=== PATIENT | female | born 1995 | race African-American/Black ===

== ENCOUNTER 2020-05-30 16:18 | Inpatient (IN) | payer SELFPAY ==
[~2020-05-30] VITALS: Ht 165.1 cm; Wt 68.9 kg
[2020-05-30] MEDS ORDERED: CEFAZOLIN 1 GM in IV D5W 50 ML IV ONE (16:30)
[2020-05-30] MEDS ORDERED: IV NS 0.9% 1,000 ML BAG IV ONE (16:30)
[2020-05-30] MEDS ORDERED: HYDROMORPHONE INJ 2 MG/ML DISP.SYRIN IV ONE (16:30)
[2020-05-30] MEDS ORDERED: ONDANSETRON HCL/PF 4 MG/2 ML VIAL IVP ONE (16:30)
[2020-05-30] MEDS ORDERED: ONDANSETRON HCL/PF 4 MG/2 ML VIAL ONE (16:46)
[2020-05-30] MEDS ORDERED: HYDROMORPHONE 1 MG/1 ML DISP.SYRIN ONE ×2 (16:46→17:12)
[2020-05-30 17:00] LABS: BASOPHILS % (AUTO) 0.5 % (0.0-2.0); EOSINOPHILS % (AUTO) 0.1 % (0.0-6.0); HEMATOCRIT 40 % (33-45); HEMOGLOBIN 12.7 g/dL (11.5-14.8); LYMPHOCYTES # (AUTO) 3.2 /CMM (0.8-4.8); LYMPHOCYTES % (AUTO) 30.4 % (20.0-44.0); MEAN CORPUSCULAR HGB CONC 32 g/dl (31.0-36.0); MEAN CORPUSCULAR VOLUME 87 fL (82-100); MONOCYTES # (AUTO) 0.6 /CMM (0.1-1.30); MONOCYTES % (AUTO) 6.1 % (2.0-12.0); NEUTROPHILS # (AUTO) 6.5 /CMM (1.8-8.9); NEUTROPHILS % (AUTO) 62.9 % (43.0-81.0); PLATELET COUNT (AUTO) 282 /CMM (150-450); RED BLOOD CELL COUNT(AUTO) 4.58 MIL/uL (4.0-5.2); WHITE BLOOD COUNT (AUTO) 10.4 K/uL (4.3-11.0)
[2020-05-30] MEDS ORDERED: HYDROMORPHONE 1 MG/1 ML DISP.SYRIN IV ONE (17:00)
--- NOTE | 2020-05-30 17:00 | NUR ---
All meds as ordered. Conversant- aware of plan of care. Constantly on phone w/family
--- NOTE | 2020-05-30 17:01 | NUR ---
PAGED DR. BOLTON FOR ORTHO CONSULT.
[2020-05-30 17:08] LABS: CALCIUM, SERUM 8.2 mg/dL (8.5-10.1); CREATININE 0.8 mg/dL (0.6-1.3); POTASSIUM 3.9 mmol/L (3.5-5.1)
--- NOTE | 2020-05-30 17:33 | NUR ---
REPAGED DR BOLTON. AWAITING HIS CALL
--- NOTE | 2020-05-30 17:52 | NUR ---
Pt asleep. Respirations even/unlabored. Await ortho and admission
[2020-05-30] MEDS ORDERED: TDAP [DIPH/PERTUSSIS/TET] 0.5 ML VIAL IM ONE ×2 (18:00→18:01)
--- NOTE | 2020-05-30 18:04 | NUR ---
PAGED DR. BOLTON.
[2020-05-30] MEDS ORDERED: PROPOFOL 200 MG/20 ML VIAL IV ONE ×2 (18:30→22:00)
[2020-05-30] MEDS ORDERED: PROPOFOL 20 ML IV ONE (18:37)
--- NOTE | 2020-05-30 19:24 | NUR ---
Total of 150mg Diprivan as ordered by ER provider Dr Bales in incrementsl doses during moderate sedation/reduction LLE. See sedation documentation post procedure assessment defer to incoming shift. Report given to Herb
[2020-05-30] MEDS ORDERED: HYDROMORPHONE INJ 2 MG/ML DISP.SYRIN ONE (20:56)
[2020-05-30] MEDS ORDERED: ONDANSETRON HCL/PF 4 MG/2 ML VIAL IVP PRN (21:00)
[2020-05-30] MEDS ORDERED: Z GUARD REMEDY 2 OZ OINT TP PRN (21:00)
[2020-05-30] MEDS ORDERED: ACETAMINOPHEN 325 MG TABLET PO PRN (21:00)
[2020-05-30] MEDS ORDERED: MAGNESIUM HYDROXIDE 30 ML UDC PO PRN (21:00)
[2020-05-30] MEDS: HYDROMORPHONE INJ 2 MG/ML DISP.SYRIN IV PRN (21:13)
--- NOTE | 2020-05-30 21:22 | NUR ---
covid swab sent
--- NOTE | 2020-05-30 21:47 | NUR ---
COVID NEGATIVE PER LAB
--- NOTE | 2020-05-30 22:16 | NUR ---
[facility] CALLED; THEY ARE READING CT SCAN RIGHT NOW
--- NOTE | 2020-05-30 22:59 | NUR ---
ROOM 316-2 GIVEN
--- NOTE | 2020-05-30 23:05 | NUR ---
REPORT GIVEN TO PERLA TORRES FOR KARY PT WILL BE TRANSPORTED TO 3RD FLOOR
--- NOTE | 2020-05-30 23:35 | NUR ---
pt transferred to 3rd floor
[2020-05-31] VITALS (10 sets, daily range): BP systolic 92–137; BP diastolic 49–78
[2020-05-31] MEDS: IV NS 0.9% 1,000 ML IV PRN ×2 (00:01→15:26)
[2020-05-31] MEDS: HYDROCODONE/APAP 5/325MG TABLET PO PRN (00:07)
[2020-05-31] MEDS ORDERED: CEFAZOLIN 1 GM in IV D5W 50 ML IV SCH ×2 (01:00→08:00)
--- NOTE | 2020-05-31 01:03 | NUR ---
MS/TELE/RN PATIENT IS SLEEPING AT THIS TIME, APPEAR COMFORTABLE, BREATHING EVEN AND UNLABORED, CALL LIGHT IN REACH, WILL CONTINUE TO MONITOR.
[2020-05-31] MEDS: HYDROMORPHONE INJ 2 MG/ML DISP.SYRIN IV PRN ×4 (01:31→20:59)
[2020-05-31] MEDS ORDERED: CEFAZOLIN 1 GM ONE (02:15)
--- NOTE | 2020-05-31 03:15 | NUR ---
MS/TELE/RN RECEIVED PATIENT FROM E.R. VIA Leo AT AROUND 23:35. PATIENT WAS AWAKE, ALERT, ORIENTED, APPEAR COMFORTABLE, NO DISTRESS NOTED, LEFT LEG WITH JUAN BANDAGE WRAP, PATIENT IS S/P REDUCTION OF LEFT ANKLE FRACTURE IN E.R. MINIMAL BLEEDING NOTED AT POSTERIOR ASPECT OF LEG, WILL MONITOR. ADMISSION DONE, UNABLE TO OBTAIN COMPLETE ADMISSION HISTORY THE PATIENT WAS NOT COOPERATIVE, PATIENT DID NOT ANSWER SOME ADMISSION QUESTIONS, REFUSED SKIN ASSESSMENT. PLAN OF CARE DISCUSSED, NPO STATUS POST MIDNIGHT ORDERED, PATIENT VERBALIZED UNDERSTANDING AND AGREEMENT TO THE PLAN OF CARE,. FALL PRECAUTIONS PER PROTOCOL IMPLEMENTED, PLACED CALL LIGHT WITHIN REACH. PRESENTLY, PATIENT IS ALREADY NPO ORDERED. WILL MONITOR.
--- NOTE | 2020-05-31 07:00 | NUR ---
MS/TELE/RN PATIENT APPEAR SLEEPING AT THIS TIME, APPEAR COMFORTABLE, NO DISTRESS NOTED, ALL NEEDS ATTENDED AT THIS TIME, WILL CONTINUE TO MONITOR.
--- NOTE | 2020-05-31 07:30 | NUR ---
MS-RN OPENING NOTE PATIENT RECEIVED FROM [facility]. PATIENT IS A/O X4, VS WITHIN NORMAL RANGE. IV FLUIDS NS INFUSING AT 100CC/HR VIA RIGHT AC 18 G. PATIENT STATES PAIN LEVEL 4/10 BUT TOLERABLE. LEFT LEG ELEVATED ON BED, DRESSING DRY AND INTACT. PATIENT NPO UNTIL CONSULT WITH DR. BOLTON. CALL LIGHT WITHIN REACH, BED IN LOWEST POSITION, SIDE RAIL X2 IN UPRIGHT POSITION, BED ALARM ACTIVE. WILL CONTINUE TO MONITOR AND ENSURE SAFETY.
[2020-05-31 08:39] LABS: BASOPHILS % (AUTO) 0.1 % (0.0-2.0); EOSINOPHILS % (AUTO) 0.4 % (0.0-6.0); HEMATOCRIT 36 % (33-45); HEMOGLOBIN 11.4 g/dL (11.5-14.8); LYMPHOCYTES # (AUTO) 2.4 /CMM (0.8-4.8); LYMPHOCYTES % (AUTO) 18.6 % (20.0-44.0); MEAN CORPUSCULAR HGB CONC 32 g/dl (31.0-36.0); MEAN CORPUSCULAR VOLUME 86 fL (82-100); MONOCYTES # (AUTO) 1.3 /CMM (0.1-1.30); MONOCYTES % (AUTO) 9.9 % (2.0-12.0); NEUTROPHILS # (AUTO) 9.1 /CMM (1.8-8.9); PLATELET COUNT (AUTO) 214 /CMM (150-450); RED BLOOD CELL COUNT(AUTO) 4.14 MIL/uL (4.0-5.2); WHITE BLOOD COUNT (AUTO) 12.8 K/uL (4.3-11.0)
[2020-05-31 08:52] LABS: CALCIUM, SERUM 7.9 mg/dL (8.5-10.1); CREATININE 0.7 mg/dL (0.6-1.3); POTASSIUM 3.7 mmol/L (3.5-5.1)
[2020-05-31] MEDS ORDERED: MIDAZOLAM HCL 2 MG/2ML VIAL ONE (09:46)
[2020-05-31] MEDS ORDERED: HYDROMORPHONE INJ 2 MG/ML DISP.SYRIN ONE (09:46)
--- NOTE | 2020-05-31 09:52 | NUR ---
MS/culture room worker Patient taken to operating room for ORIF left ankle with Dr Lazcano.
[2020-05-31] MEDS ORDERED: ANESTHESIA TRAY IN PYXIS 1 EA TRAY MC ONE (09:59)
[2020-05-31] MEDS ORDERED: BACITRACIN 50000 UNITS/VIAL ONE (09:59)
[2020-05-31] MEDS ORDERED: BUPIVACAINE 0.5 % PF 150 MG/30 ML VIAL ONE (09:59)
[2020-05-31] MEDS ORDERED: BUPIVACAINE MPF 0.5% W/EPI INJ 30 ML VIAL ONE (09:59)
--- NOTE | 2020-05-31 10:00 | NUR ---
MS/RN Non admin IVAB non administered as patient in OR.
[2020-05-31] MEDS ORDERED: BUPIVACAINE 0.25% 75 MG/30 ML VIAL ONE (12:11)
--- NOTE | 2020-05-31 13:50 | NUR ---
MS/RN Post op Patient received back from operating room s/p left ankle ORIF. Vital signs recorded as per hospital protocol, left leg elevated on bed, dressing clean and dry upon return. Patient has sensation to toes on left foot, toes warm to touch. Pre operative orders resumed, to continue with ancef every eight hours, last dose being administered at 1025. NWB to left leg, physical therapy evaluation ordered. Lovenox 40mg to be tomorrow with dose being daily. Call light within reach, will continue to monitor and ensure safety.
[2020-05-31] MEDS: CEFAZOLIN 1 GM in IV D5W 50 ML IV SCH (17:14)
--- NOTE | 2020-05-31 18:37 | NUR ---
MS/RN End note Patient remains in stable condition, last pain medication administered at 1720 with goo effect. Patient now resting comfortably. Left leg remains elevated on pillow, able to move all toes. IVF and IVAB administered as ordered, time allowed for all questions and concerns to be addressed. Will endorse to night patrol inspector.
--- NOTE | 2020-05-31 19:35 | NUR ---
MS-RN OPENING NOTE RECEIVED PATIENT IN ROOM IS A/O X4, LEFT LEG ELEVATED ON BED, NO DISTRESS NOTED, NO S/S OF SOB. CALL LIGHT WITHIN REACH, BED IN LOWEST POSITION, SIDE RAIL X2 IN UPRIGHT POSITION, BED ALARM ACTIVE. WILL CONTINUE TO MONITOR AND ENSURE SAFETY.
--- NOTE | 2020-05-31 21:05 | NUR ---
MS RN NOTE: PT. C/O OF 8/10 PAIN IN ANKLE/FOOT. ADMINISTERED DILAUDID 2MG PRN ORDERED. WILL CONTINUE TO MONITOR FOR SAFETY AND BEHAVIOR.
--- NOTE | 2020-06-01 01:42 | NUR ---
MS RN NOTE: PT. ATTEMPTED TO RECORD WHILE INSERTING IV. TOLD HER THAT IT'S AGAINST THE LAW TO RECORD AND SHE TURNED OFF HER PHONE AND PROCEEDED TO INSERT IV IN RIGHT HAND 18 GAUGE. WILL CONTINUE TO MONITOR.
[2020-06-01] MEDS: HYDROMORPHONE INJ 2 MG/ML DISP.SYRIN IV PRN ×6 (01:43→22:48)
--- NOTE | 2020-06-01 01:47 | NUR ---
MS RN NOTE: PT. C/O OF 8/10 PAIN IN ANKLE/FOOT. ADMINISTERED DILAUDID 2MG PRN ORDERED. WILL CONTINUE TO MONITOR FOR SAFETY AND BEHAVIOR.
[2020-06-01] MEDS: CEFAZOLIN 1 GM in IV D5W 50 ML IV SCH ×3 (02:29→17:08)
--- NOTE | 2020-06-01 05:27 | NUR ---
MS RN NOTE: PT. C/O OF 8/10 PAIN IN ANKLE/FOOT. ADMINISTERED DILAUDID 2MG PRN ORDERED. WILL CONTINUE TO MONITOR FOR SAFETY AND BEHAVIOR.
--- NOTE | 2020-06-01 06:49 | NUR ---
MS/RN End note Patient remains in stable condition, last pain medication administered at 0522. Patient now resting comfortably. Left leg remains elevated on pillow, able to move all toes.
--- NOTE | 2020-06-01 07:39 | NUR ---
MS/RN OPENING NOTES RECEIVED PATIENT ON BED, AWAKE, ALERT AND ORIENTED X4. PATIENT COMPLAINED OF PAIN RATED 10/10 DILAUDID 2 MG IV WAS GIVEN. PATIENT IN NO APPARENT RESPIRATORY DISTRESS NOTED. WILL CONTINUE TO MONITOR.
[2020-06-01 08:00] VITALS: BP 118/63
--- NOTE | 2020-06-01 08:16 | NUR ---
RN NOTES RECEIVED REPORT FROM PERLA TELLEZ. WILL CONTINUE KARY.
[2020-06-01] MEDS: ENOXAPARIN SODIUM 40 MG/0.4 ML DISP.SYRIN SQ SCH (08:56)
[2020-06-01] MEDS: HYDROCODONE/APAP 5/325MG TABLET PO PRN ×3 (08:57→19:53)
[2020-06-01 13:00] LABS: BASOPHILS % (AUTO) 0.2 % (0.0-2.0); EOSINOPHILS % (AUTO) 0.5 % (0.0-6.0); HEMATOCRIT 35 % (33-45); HEMOGLOBIN 11.3 g/dL (11.5-14.8); LYMPHOCYTES # (AUTO) 1.7 /CMM (0.8-4.8); LYMPHOCYTES % (AUTO) 13.8 % (20.0-44.0); MEAN CORPUSCULAR HGB CONC 32 g/dl (31.0-36.0); MEAN CORPUSCULAR VOLUME 86 fL (82-100); MONOCYTES # (AUTO) 1.8 /CMM (0.1-1.30); MONOCYTES % (AUTO) 14.3 % (2.0-12.0); NEUTROPHILS # (AUTO) 8.8 /CMM (1.8-8.9); NEUTROPHILS % (AUTO) 71.2 % (43.0-81.0); PLATELET COUNT (AUTO) 186 /CMM (150-450); RED BLOOD CELL COUNT(AUTO) 4.08 MIL/uL (4.0-5.2); WHITE BLOOD COUNT (AUTO) 12.3 K/uL (4.3-11.0)
[2020-06-01 13:45] LABS: CALCIUM, SERUM 8.4 mg/dL (8.5-10.1); CREATININE 0.7 mg/dL (0.6-1.3); POTASSIUM 3.4 mmol/L (3.5-5.1)
[2020-06-01] MEDS ORDERED: POTASSIUM CHLORIDE 20 MEQ TAB.PRT.SR PO SCH (14:30)
[2020-06-01 16:00] VITALS: BP 116/65
[2020-06-01] MEDS ORDERED: ONDANSETRON HCL/PF 4 MG/2 ML VIAL IVP ONE (16:46)
[2020-06-01] MEDS ORDERED: CEFAZOLIN 1 GM VIAL IV ONE (16:46)
[2020-06-01] MEDS ORDERED: KETOROLAC TROMETHAMINE INJ 30 MG/ML VIAL IV ONE (16:46)
[2020-06-01] MEDS ORDERED: METOCLOPRAMIDE HCL 10 MG/2 ML VIAL IV ONE (16:46)
[2020-06-01] MEDS ORDERED: DEXAMETHASONE SOD PHOSPHATE 4 MG/ML VIAL IV ONE (16:46)
[2020-06-01] MEDS ORDERED: PROPOFOL 200 MG/20 ML VIAL IV ONE (16:46)
[2020-06-01] MEDS ORDERED: LIDOCAINE HCL/PF 2 % 5ML SDV 5 ML VIAL IV ONE (16:46)
--- NOTE | 2020-06-01 18:47 | NUR ---
RN NOTES PATIENT IN BED RESTING COMFORTABLY IN MODERATE HIGH BACK REST. A/O X4. ON RA, TOLERATING WELL. NO SIGNS OF DISTRESS NOTED AT THIS TIME. IV ACCESS ON RIGHT HAND #18. INTACT AND PATENT. SAFETY MEASURES IN PLACE, BED IN LOWEST LOCKED POSITION WITH SIDE RAILS UP X2. CALL LIGHT WITHIN EASY REACH. LEFT LEG KEPT ELEVATED WITH PILLOW. WILL ENDORSE TO LATHMAKER NURSE FOR KARY.
--- NOTE | 2020-06-01 19:23 | NUR ---
MS RN OPENING NOTES PATIENT AWAKE IN BED. A/OX4. STABLE ON RA. NO S/S OF ACUTE RESPIRATORY DISTRESS; BREATHING IS EVEN AND UNLABORED. NO C/O PAIN AT THIS TIME. LEFT ANKLE BOOT PRESENT; ELEVATED ON PILLOW; PATIENT ABLE TO MOVE TOES AND WARM TO TOUCH. IV PRESENT ON RIGHT HAND, SIZE 18, INTACT & PATENT WITH NS RUNNING AT 100 ML/HR. SAFETY MEASURES IN PLACE AND PATIENT'S NEEDS MET. BED LOCKED, SIDE RAILS X2, CALL LIGHT WITHIN REACH. WILL CONTINUE TO MONITOR.
[2020-06-01 20:00] VITALS: BP 112/68
[2020-06-01] MEDS: ZOLPIDEM TARTRATE 5 MG TABLET PO PRN (22:37)
[2020-06-01] MEDS: IV NS 0.9% 1,000 ML IV PRN (22:42)
--- NOTE | 2020-06-01 22:48 | NUR ---
MS RN NOTES PATIENT REQUESTED PRN AMBIEN; HOWEVER ONCE MEDICATION WAS BROUGHT TO ROOM PATIENT STARTED TO CRY AND REQUESTED FOR PAIN MEDICATION INSTEAD. AMBIEN RETURNED TO [facility] AND WITNESSED WITH CO-RN. ADMINISTERED PRN DILAUDID 2MG IV PUSH. VITAL SIGNS - BP: 133/81, HR: 104. CALL LIGHT WITHIN REACH. WILL CONTINUE TO MONITOR.
[2020-06-02] MEDS: ZOLPIDEM TARTRATE 5 MG TABLET PO PRN (01:17)
--- NOTE | 2020-06-02 01:17 | NUR ---
MS RN NOTES PATIENT REQUESTED SLEEPING AID. ADMINISTERED PRN AMBIEN 5M PO. SAFETY MEASURES IN PLACE AND PATIENT'S NEEDS MET. WILL CONTINUE TO MONITOR.
[2020-06-02] MEDS: CEFAZOLIN 1 GM in IV D5W 50 ML IV SCH ×2 (01:37→09:08)
[2020-06-02 05:14] VITALS: BP 135/76
[2020-06-02] MEDS: HYDROMORPHONE INJ 2 MG/ML DISP.SYRIN IV PRN (05:14)
--- NOTE | 2020-06-02 05:14 | NUR ---
MS RN NOTES PATIENT AGITATED AND THREW WATER PITCHER, CALL LIGHT, AND OTHER ITEMS ON THE FLOOR. ASKED PATIENT IF SHE WAS IN PAIN; PATIENT STATED YES HOWEVER WOULD NOT ELABORATE FURTHER. PATIENT REFUSED BP TO BE TAKEN BY SALES/MARKETING; EXPLAINED TO THAT WE NEED TO CHECK BP BEFORE GIVING PAIN MEDS; PATIENT RELUCTANTLY AGREED. ADMINISTERED PRN DILAUDID 2MG IV PUSH GIVEN. VITAL SIGNS - BP: 135/76, HR: 104. SAFETY MEASURES IN PLACE AND PATIENT'S NEEDS MET. WILL CONTINUE TO MONITOR.
[2020-06-02 06:47] LABS: BASOPHILS % (AUTO) 0.3 % (0.0-2.0); EOSINOPHILS % (AUTO) 0.4 % (0.0-6.0); HEMATOCRIT 34 % (33-45); HEMOGLOBIN 10.9 g/dL (11.5-14.8); LYMPHOCYTES # (AUTO) 1.5 /CMM (0.8-4.8); LYMPHOCYTES % (AUTO) 13.1 % (20.0-44.0); MEAN CORPUSCULAR HGB CONC 32 g/dl (31.0-36.0); MEAN CORPUSCULAR VOLUME 86 fL (82-100); MONOCYTES # (AUTO) 1.7 /CMM (0.1-1.30); MONOCYTES % (AUTO) 14.2 % (2.0-12.0); NEUTROPHILS # (AUTO) 8.4 /CMM (1.8-8.9); PLATELET COUNT (AUTO) 193 /CMM (150-450); RED BLOOD CELL COUNT(AUTO) 3.96 MIL/uL (4.0-5.2); WHITE BLOOD COUNT (AUTO) 11.7 K/uL (4.3-11.0)
--- NOTE | 2020-06-02 06:52 | NUR ---
MS RN CLOSING NOTES PATIENT SLEEPING, EASY TO AWAKEN. A/OX4. NO S/S OF SOB OR PAIN NOTED; BREATHING IS EVEN AND UNLABORED. LEFT ANKLE BOOT REMAINS IN PLACE AND ELEVATED ON PILLOW; SENSATION ON LEFT FOOT WNL. IV PRESENT ON RIGHT HAND, SIZE 18, INTACT & PATENT HEP LOCKED AT THIS TIME. SAFETY MEASURES IN PLACE AND PATIENT'S NEEDS MET. BED LOCKED, SIDE RAILS X2, CALL LIGHT WITHIN REACH, WILL ENDORSE TO DAY SHIFT RN PLAN OF CARE.
[2020-06-02 07:29] LABS: CALCIUM, SERUM 8.5 mg/dL (8.5-10.1); CREATININE 0.6 mg/dL (0.6-1.3); MAGNESIUM 1.9 mg/dL (1.8-2.4); PHOSPHORUS 2.8 mg/dL (2.5-4.9); POTASSIUM 3.5 mmol/L (3.5-5.1)
--- NOTE | 2020-06-02 07:30 | NUR ---
RN NOTES RECEIVED PATIENT IN BED RESTING COMFORTABLY IN MODERATE HIGH BACK REST. A/O X4. ON RA, TOLERATING WELL. NO SIGNS OF DISTRESS NOTED AT THIS TIME. IV ACCESS ON RIGHT HAND #18. INTACT AND PATENT. SAFETY MEASURES IN PLACE, BED IN LOWEST LOCKED POSITION WITH SIDE RAILS UP X2. CALL LIGHT WITHIN EASY REACH. LEFT LEG ELEVATED WITH PILLOW. WILL CONTINUE TO MONITOR.
[2020-06-02] MEDS: HYDROCODONE/APAP 5/325MG TABLET PO PRN ×2 (07:56→12:30)
[2020-06-02 08:00] VITALS: BP 127/69
[2020-06-02] MEDS: ENOXAPARIN SODIUM 40 MG/0.4 ML DISP.SYRIN SQ SCH (08:32)
--- NOTE | 2020-06-02 09:55 | NUR ---
RN NOTES PATIENT IV ACCESS WAS PULLED OUT, PATIENT REFUSED RE-INSERTION OF IV ACCESS, EXPLAINED RISKS AND BENEFITS FOR 3X AND STILL REFUSED, WILL CONTINUE TO MONITOR.
--- NOTE | 2020-06-02 10:50 | NUR ---
RN NOTES CALLED DR. BOLTON OFFICE, THEY SAID THEY WILL PAGED DR. BOLTON AND WILL CALL ME BACK. WILL F/U.
[2020-06-02] MEDS ORDERED: ASPI-992 PO (11:18)
[2020-06-02] MEDS ORDERED: CEPH-570 PO (11:18)
--- NOTE | 2020-06-02 15:30 | NUR ---
RN AMA NOTES PATIENT WANTS TO LEAVE WITHOUT BEING SEEN BY MD, PER PATIENT SHE IS GOING SOMEWHERE AND HER FLIGHT IS @ 18:00, EXPLAINED THE RISKS FOR 3X BUT PATIENT STILL WANTS TO LEAVE, PATIENT SIGNED THE AMA FORM. PRESCRIPTION MEDICATION GIVEN TO THE PATIENT. CHARGE NURSE AWARE.
== END 2020-06-02 15:20 | disposition left against medical advice (07) | DRG 493 ==
LOC: ER 16:23 → MED 23:11
PROVIDERS: ADMIT Nurse Practitioner Acute Care; ATTEND Nurse Practitioner Acute Care
PROC: 0QSK04Z Reposition Left Fibula with Internal Fixation Device, Open Approach (ICD-10-PCS; principal; 2020-05-31)
PROC: 0QSH04Z Reposition Left Tibia with Internal Fixation Device, Open Approach (ICD-10-PCS; 2020-05-31)
DX: S82.252B Displaced comminuted fracture of shaft of left tibia, initial encounter for open fracture type I or II (principal); S92.142B Displaced dome fracture of left talus, initial encounter for open fracture; S82.62XB Displaced fracture of lateral malleolus of left fibula, initial encounter for open fracture type I or II; D68.59 Other primary thrombophilia; S82.452B Displaced comminuted fracture of shaft of left fibula, initial encounter for open fracture type I or II; W10.9XXA Fall (on) (from) unspecified stairs and steps, initial encounter; Y92.9 Unspecified place or not applicable; Y93.02 Activity, running; F12.90 Cannabis use, unspecified, uncomplicated; S93.05XA Dislocation of left ankle joint, initial encounter; Z74.09 Other reduced mobility; S91.012A Laceration without foreign body, left ankle, initial encounter
CPT/HCPCS: 36415; 73600-TC; 73610-TC; 73630-TC; 73700-TC; 80048-TC; 80061-TC; 83735-TC; 84100-TC; 84702-TC; 85025-TC; 85730-TC; 87081-TC; 90715; 97110-TC; 97116-TC; 97530-TC; C1713; C9803-CS; G0378; G0500; J0690; J1100; J1170; J1650; J1885; J2250; J2405; J2704; J2765; J3490; J7030; J7060

== ENCOUNTER 2020-06-02 19:59 | Emergency (ER) | payer SELFPAY ==
[~2020-06-02] VITALS: Ht 170.2 cm; Wt 57.6 kg
[~2020-06-02 19:59] MED LIST: ASPI-992 PO; CEPH-570 PO
--- NOTE | 2020-06-02 20:20 | NUR ---
ESTEVAN SRINIVASAN at bed side
[2020-06-02] MEDS ORDERED: ONDANSETRON 4 MG TAB.RAPDIS ONE (20:27)
[2020-06-02] MEDS ORDERED: MORPHINE SULFATE INJ 4 MG/ML DISP.SYRIN ONE (20:27)
[2020-06-02] MEDS ORDERED: MORPHINE SULFATE INJ 2 MG/ML DISP.SYRIN ONE (20:29)
[2020-06-02] MEDS ORDERED: MORPHINE SULFATE INJ 2 MG/ML DISP.SYRIN IM ONE (20:30)
[2020-06-02] MEDS ORDERED: ONDANSETRON 4 MG TAB.RAPDIS SL ONE (20:30)
--- NOTE | 2020-06-02 21:25 | NUR ---
Patient is resting comfortably in bed with eyes closed. Easily aroused. VSS
--- NOTE | 2020-06-02 21:30 | NUR ---
pt is medically stable for D/C. Patient discharged to home in stable condition. Written and verbal after care instructions given. Patient verbalizes understanding of instruction. called pt's friend , Pancho @ [phone] per pt's request to pick her up.
--- NOTE | 2020-06-02 22:22 | NUR ---
PATIENT IS MEDICALLY STABLE TO D/C Patient discharged to home in stable condition. Written and verbal after care instructions given. Patient verbalizes understanding of instruction. PATIENT WAS ASSISTED TO THE CAR VIA WHEEK CHAIR ACCOMAPNYED BY 2 RN'S.
[2020-06-02 22:24] VITALS: BP 112/72
== END 2020-06-02 22:25 | disposition home or self-care (01) ==
LOC: ER 20:02
DX: M79.605 Pain in left leg (principal); Z79.82 Long term (current) use of aspirin; Z79.899 Other long term (current) drug therapy
CPT/HCPCS: 96372; 99283; J2270; Q0162